=== PATIENT | male | born 1950 | race Caucasian/White ===

== ENCOUNTER 2016-05-19 14:28 | Emergency (ER) | payer MEDICARE, MEDICAID ==
[~2016-05-19] VITALS: Ht 157.5 cm; Wt 70.0 kg
[2016-05-19 14:33] VITALS: Ht 157.5 cm; Wt 70.0 kg
[2016-05-19 14:50] LABS: ADD SCAN DIFF NO
[2016-05-19 14:53] LABS: BASOPHIL # 0.1 10^3/ul (0.0-0.1); BASOPHILS % 0.8 % (0.0-2.0); EOSINOPHILS # 0.3 10^3/ul (0.0-0.5); EOSINOPHILS % 3.3 % (0.0-7.0); HEMATOCRIT 27.6 % (42.0-52.0); HEMOGLOBIN 8.7 g/dl (14.0-18.0); LYMPHOCYTES # 1.6 10^3/ul (0.8-2.9); LYMPHOCYTES % 21.2 % (15.0-51.0); MEAN CORPUSCULAR HEMOGLOBIN 27.1 pg (29.0-33.0); MEAN CORPUSCULAR HGB CONC 31.5 g/dl (32.0-37.0); MEAN PLATELET VOLUME 9.4 fl (7.4-10.4); MONOCYTE # 0.7 10^3/ul (0.3-0.9); MONOCYTES % 8.8 % (0.0-11.0); NEUTROPHIL # 4.9 10^3/ul (1.6-7.5); NEUTROPHILS % 65.5 % (39.0-77.0); PLATELET COUNT 258 10^3/UL (140-415); RED BLOOD COUNT 3.21 10^6/ul (4.70-6.10); RED CELL DISTRIBUTION WIDTH 14.6 % (11.5-14.5); WHITE BLOOD COUNT 7.5 10^3/ul (4.8-10.8)
[2016-05-19 14:55] VITALS: TEMP 97.1
[2016-05-19] MEDS ORDERED: ISOS60TA PO (14:57)
[2016-05-19] MEDS ORDERED: FAMO20TA18 PO (14:58)
[2016-05-19] MEDS ORDERED: CARV12.598 PO (14:58)
[2016-05-19] MEDS ORDERED: FENO48TA4 PO (14:58)
--- NOTE | 2016-05-19 14:58 | RADRPT ---
PROCEDURE: XR Chest. CLINICAL INDICATION: Chest pain. TECHNIQUE: Single frontal view of the chest was obtained COMPARISON: No. FINDINGS: The soft tissues are normal. There are osteophytes in the thoracic spine. The heart is enlarged. The cardiomediastinal silhouette, pulmonary vasculature and hilar structures are normal. There are v ascular calcifications and mild ectasia of the thoracic lungs are clear. There are nipple shadows n oted in the lower lung amado. The costophrenic angles are normal. IMPRESSION: 1. Cardiomegaly with left ventricular enlargement. 2. Spondylosis of the thoracic spine. 3. Atherosclerosis of the aortic arch. RPTAT:AAJJ Physician Lisandra Date Time Electronically viewed and signed by Bret Huerta Physician on 05/19/2016 14:57 /
[2016-05-19] MEDS ORDERED: OMEG-80 PO (14:59)
[2016-05-19] MEDS ORDERED: ATOR80TA75 PO (14:59)
[2016-05-19] MEDS ORDERED: ASPI81TA3 PO (14:59)
[2016-05-19] MEDS ORDERED: SEVE800T10 PO (15:00)
[2016-05-19] MEDS ORDERED: INSU100C SQ (15:00)
[2016-05-19] MEDS ORDERED: LANT3I SC (15:00)
[2016-05-19] MEDS ORDERED: ERGO500037 PO (15:00)
[2016-05-19 15:09] LABS: INR 0.91; PROTIME 12.2 Sec (12.2-14.2)
[2016-05-19 15:10] LABS: PARTIAL THROMBOPLASTIN TIME 25.8 Sec (25.0-35.0)
[2016-05-19 15:11] LABS: POTASSIUM 5.1 mmol/L (3.5-5.1)
[2016-05-19 15:13] LABS: CREATININE 7.67 mg/dl (0.61-1.24)
[2016-05-19 15:14] LABS: CALCIUM 8.3 mg/dl (8.4-10.2)
[2016-05-19 15:25] LABS: TROPONIN-I 0.017 ng/ml (0.00-0.12)
[2016-05-19] MEDS ORDERED: CALCIUM GLUCONATE 10% 1 GM in SOD CHLORIDE 0.9% 100 ML IVPB ONE (16:00)
--- NOTE | 2016-05-19 16:12 | ERD ---
ER Documentation Chief Complaint Date/Time DATE: 05/19/16 TIME: 16:07 Chief Complaint BIB RA FROM [facility] FOR EVAL OF ABNORMAL EKG HPI This is a 66-year-old male who presents to the emergency room after being brought in from [facility] for evaluation of an abnormal EKG. This patient does have a history of renal failure, and is on a renal transplant list. The patient states that he sometimes has elevated potassium, and there was a concern for high potassium. The patient was transported to the ER for further evaluation. He is denying any chest pain, shortness of breath, or palpitations at this time. ROS All systems reviewed and are negative except as per history of present illness. Medications Home Meds Reported Medications Ergocalciferol (Vitamin D2) (VITAMIN D2) 50,000 Unit Capsule, 14541 UNIT PO WEEKLY, CAP 05/19/16 Sevelamer Hcl* (Renagel*) 800 Mg Tablet, 800 MG PO WITH MEALS, TAB 05/19/16 Insulin Glargine* (Lantus*) 100 Unit/Ml Soln, 35 UNIT SC QHS, #1 VIAL 05/19/16 Insulin Lispro (Humalog) 100 Unit/1 Ml Cartridge, 0-25 UNIT SQ AC MEALS 05/19/16 Pax-3S/Dha/Epa/Fish Oil/D3 (FISH OIL + D3 SOFTGEL) 1 Each Capsule, 1 EACH PO BID, CAP 05/19/16 Aspirin* (Aspirin* Chew) 81 Mg Tab.chew, 81 MG PO DAILY, TAB.CHEW 05/19/16 Atorvastatin* (Atorvastatin*) 80 Mg Tablet, 80 MG PO QHS, #30 TAB 05/19/16 Fenofibrate Nanocrystallized* (Fenofibrate*) 48 Mg Tablet, 67 MG PO DAILY, TAB 05/19/16 Famotidine* (Famotidine*) 20 Mg Tablet, 20 MG PO BID, #60 TAB 05/19/16 Carvedilol* (Coreg*) 12.5 Mg Tablet, 12.5 MG PO BID, #60 TAB 05/19/16 Isosorbide Mononitrate* (Isosorbide Mononitrate*) 60 Mg Tab.er.24h, 60 MG PO TID , TAB 05/19/16 Allergies Allergies: Coded Allergies: No Known Drug Allergy (Verified Allergy, Unknown, 05/13/06) PMhx/Soc Hx Cardiac Disorders: Yes (HTN, HI CHO) Hx Miscellaneous Medical Probl: Yes (KIDNEY FAILURE, DM1) Hx Alcohol Use: Yes (OCCASIONAL USE) Hx Substance Use: No Hx Tobacco Use: Yes (QUIT OVER 20 YRS AGO) Smoking Status: Former smoker Physical Exam Vitals Vital Signs Date Time Temp Pulse Resp B/P Pulse Ox O2 Delivery O2 Flow Rate FiO2 05/19/16 14:55 97.1 71 18 154/79 100 Nasal Cannula 2.0 05/19/16 14:47 Nasal Cannula 2 05/19/16 14:33 97.1 64 18 154/79 10 Physical Exam INITIAL VITAL SIGNS: Reviewed by me GENERAL: The patient is well developed and appropriate for usual state of health in no apparent distress HEENT: Pupils equal, round, and reactive to light. EOMI. There is no scleral icterus. NECK: C-spine is soft and supple, there is no meningismus. There is no cervical lymphadenopathy. LUNGS: Clear to auscultation bilaterally. There are no rales, wheezes or rhonchi. HEART: Regular rate and rhythm, no murmurs, clicks, rubs or gallops. ABDOMEN: Soft, non-tender, non-distended. There are bowel sounds in all four quadrants. No rebound or guarding. EXTREMITIES: AV fistula left upper extremity, there is no peripheral cyanosis or edema. No focal swelling or erythema. NEUROLOGICAL: The patient moves all four extremities with 5/5 strength. Cranial nerves II - XII are intact. Normal gait. Alert and oriented SKIN: There is no apparent rash or petechiae. HEME/LYMPHATIC: There is no evidence of excessive bruising or lymphedema. PSYCHIATRIC: The patient does not appear anxious or depressed. Result Diagram: 05/19/16 1435 05/19/16 1435 Results 24 hrs Laboratory Tests Test 05/19/16 14:35 Activated Partial Thromboplast Time 25.8Sec Anion Gap 16 Basophils # 0.110^3/ul Basophils % 0.8% Blood Urea Nitrogen 68mg/dl Calcium Level 8.3mg/dl Carbon Dioxide Level 24mmol/L Chloride Level 104mmol/L Creatinine 7.67mg/dl Eosinophils # 0.310^3/ul Eosinophils % 3.3% Glucose Level 66mg/dl Hematocrit 27.6% Hemoglobin 8.7g/dl INR International Normalized Ratio 0.91 Lymphocytes # 1.610^3/ul Lymphocytes % 21.2% Mean Corpuscular Hemoglobin 27.1pg Mean Corpuscular Hemoglobin Concent 31.5g/dl Mean Corpuscular Volume 86.0fl Mean Platelet Volume 9.4fl Monocytes # 0.710^3/ul Monocytes % 8.8% Neutrophils # 4.910^3/ul Neutrophils % 65.5% Nucleated Red Blood Cells # 0.010^3/ul Nucleated Red Blood Cells % 0.0/100WBC Platelet Count 83106^3/UL Potassium Level 5.1mmol/L Prothrombin Time 12.2Sec Prothrombin Time Ratio 1.0 Red Blood Count 3.2110^6/ul Red Cell Distribution Width 14.6% Sodium Level 139mmol/L Troponin I 0.017ng/ml White Blood Count 7.510^3/ul Current Medications Medications (Trade) Dose Ordered Sig/Anupam Route PRN Reason Start Time Stop Time Status Last Admin Dose Admin Calcium Gluconate/ Sodium Chloride (Ca Gluc/NS) 110 ml @ 110 mls/hr ONCE ONCE IVPB 05/19/16 16:00 05/19/16 16:59 Procedures/MDM EKG: Rate/Rhythm: Left bundle branch block QRS, ST, T-waves: [No changes consistent w/ acute ischemia] Impression: [No evidence of ischemia or arrhythmia] EKG: Rate/Rhythm: Left bundle branch block QRS, ST, T-waves: [No changes consistent w/ acute ischemia] Impression: [No evidence of ischemia or arrhythmia] Chest X-ray 1V Interpreted by me: Soft Tissue: No acute abnormalities Bones: No acute abnormalities Mediastinum/Cardiac Silhouette/Lungs: [No acute abnormalities] This 66-year-old male presents to the ER for evaluation of abnormal EKG, and possible hyperkalemia. He is chronic renal failure patient on a wait list for a kidney transplant. The patient does have an AV fistula in his left upper extremity, however he is not on dialysis. There was a concern for abnormal EKG and the patient was brought to the ER. [facility] did not have any available bed so he was transported to the other closest facility which was [facility]. I evaluated this patient and he had no complaints of chest pain. I did obtain an EKG which shows a left bundle branch block. He was sent with medical records and he does have a previous EKG from February 2016 which shows a left bundle branch block. Lab work was drawn which does show an increase in his creatinine, however his potassium is 5.1. Repeat EKG does not show any evolution or evolving changes. Chest x-ray does not show any pulmonary edema or fluid overload. This patient is sitting in bed comfortably, not hypoxic, and in no acute distress. I advised him on the importance of following up with a district ranger to establish care for dialysis while he is on the wait list for a renal transplant. The patient verbalized understanding and states he will call his doctor tomorrow morning. Departure Diagnosis: Primary Impression: Chronic renal failure Additional Impression: Normocytic anemia Condition: Stable JAYLYN HUFF DO May 19, 2016 16:11
[2016-05-19 16:40] VITALS: BP 145/71; PULSE 73; RESP 16
== END 2016-05-19 16:42 | disposition home or self-care (01) ==
LOC: E/R 14:28
DX: I12.9 Hypertensive chronic kidney disease with stage 1 through stage 4 chronic kidney disease, or unspecified chronic kidney disease (principal); D64.9 Anemia, unspecified; E10.9 Type 1 diabetes mellitus without complications; N18.9 Chronic kidney disease, unspecified; Z79.4 Long term (current) use of insulin; Z79.82 Long term (current) use of aspirin; Z87.891 Personal history of nicotine dependence
CPT/HCPCS: 36415; 71010; 80048; 84484; 85025; 85610; 85730; 93005; J0610